=== PATIENT | male | born 1975 | race Two or more races ===

== ENCOUNTER 2018-02-14 02:38 | Emergency (ER) | payer MEDICAID ==
[2018-02-14 02:43] VITALS: BP 145/97
--- NOTE | 2018-02-14 02:45 | EDPHY ---
H & P Stated Complaint: lumbar back pain Time Seen by Provider: 02/14/18 02:45 HPI/ROS: HPI CHIEF COMPLAINT: Low back pain HISTORY OF PRESENT ILLNESS: Patient very pleasant 42-year-old male he is otherwise healthy but does have a history of a low back injury, he presents emergency room with back pain. The pain is located in his lumbar spine. Sharp stabbing radiates slightly out to the right side and goes down his right gluteus but does not go down the entire leg. He states this all started yesterday when he picked up a heavy bucket of water at work. He stood up straight developed some pain. He has injured his back before approximately 2 years ago. No lumbar surgery. He denies any leg weakness or saddle anesthesia denies bowel or bladder incontinence. Denies chest pain or shortness of breath or abdominal pain. The pain is located his lumbar spine. Describes it as 6/10. Past Medical History: Previous lumbar back injury Past Surgical History: Left kidney surgery Social History: Smokes tobacco lives in [place] denies illicit drugs or alcohol. Family History: Noncontributory ROS REVIEW OF SYSTEMS: A comprehensive 10 point review of systems is otherwise negative aside from elements mentioned in the history of present illness. Exam Constitutional appears well nontoxic triage nursing summary reviewed, vital signs reviewed, awake/alert. Eyes normal conjunctivae and sclera, EOMI, PERRLA. HENT normal inspection, atraumatic, moist mucus membranes, no epistaxis, neck supple/ no meningismus, no raccoon eyes. Respiratory clear to auscultation bilaterally, normal breath sounds, no respiratory distress, no wheezing. Cardiovascular rate normal, regular rhythm, no murmur, no edema, distal pulses normal. Gastrointestinal soft, non-tender, no rebound, no guarding, normal bowel sounds, no distension, no pulsatile mass. Genitourinary no CVA tenderness. Musculoskeletal lumbar spine no significant midline tenderness or step-offs, no crepitus, very mild paravertebral pain of the lumbar spine worse on the right than left, normal straight leg raise, normal leg strain, no saddle anesthesia or leg weakness, no midline vertebral tenderness, full range of motion, no calf swelling, no tenderness of extremities, no meningismus, good pulses, neurovascularly intact. Skin pink, warm, & dry, no rash, skin atraumatic. Neurologic awake, alert and oriented x 3, AAOx3, moves all 4 extremities equally, motor intact, sensory intact, CN II-XII intact, normal cerebellar, normal vision, normal speech. Psychiatric normal mood/affect. Heme/Lymph/Immune no lymphadenopathy. Differential Diagnosis: Includes but is not limited to in a particular order lumbar strain, annular tear, disc herniation, nerve root compression, sciatica, compression fracture Medical Decision Making: Plan for this patient he drove here will provide 800 mg Motrin, and lumbar spine x-ray. Re-evaluation: X-ray lumbar spine reviewed. Negative for acute compression fracture malalignment. This is interpreted by myself. Source: Patient - Personal History Current Tetanus Diphtheria and Acellular Pertussis (TDAP): No - Medical/Surgical History Hx Asthma: No Hx Chronic Respiratory Disease: No Hx Diabetes: No Hx Cardiac Disease: No Hx Renal Disease: No Hx Cirrhosis: No Hx Alcoholism: No Hx HIV/AIDS: No Hx Splenectomy or Spleen Trauma: No Other PMH: hx "lumbar pain from a drunk fall a long time ago" - Social History Smoking Status: Heavy smoker Constitutional: Initial Vital Signs Temperature (C) 36.9 C 02/14/18 02:39 Heart Rate 80 02/14/18 02:39 Respiratory Rate 18 02/14/18 02:39 Blood Pressure 145/97 H 02/14/18 02:39 O2 Sat (%) 96 02/14/18 02:39 O2 Delivery Mode Room Air Allergies/Adverse Reactions: No Known Allergies Allergy (Unverified 02/14/18 02:39) Home Medications: Medication Instructions Recorded Dexamethasone [Decadron 4 MG (*)] 8 mg PO DAILY #4 tab 02/14/18 Hydrocodone/APAP 5/325 [[place] 1 - 2 tab PO Q4H PRN #10 tab 02/14/18 5/325] Ibuprofen [Motrin (*)] 800 mg PO Q6-8PRN #14 tab 02/14/18 Medical Decision Making - Data Points Medications Given: Discontinued Medications Dexamethasone (Decadron) 8 mg PO EDNOW ONE Stop: 02/14/18 02:54 Last Admin: 02/14/18 02:56 Dose: 8 mg Ibuprofen (Motrin) 800 mg PO EDNOW ONE Stop: 02/14/18 02:51 Last Admin: 02/14/18 02:56 Dose: 800 mg Departure - Departure Disposition: Home, Routine, Self-Care Clinical Impression: Lumbar spine strain Qualifiers: Encounter type: initial encounter Qualified Code(s): S39.012A - Strain of muscle, fascia and tendon of lower back, initial encounter Condition: Good Instructions: Low Back Strain (ED) Additional Instructions: 1. Follow up with her primary care doctor. 2. Take it easy. Do not lift heavy things. 3. Anti-inflammatory pain medicine for mild pain 4. [place] for severe pain. Referrals: NONE *PRIMARY CARE P,. [Primary Care Provider] - As per Instructions Prescriptions: Dexamethasone [Decadron 4 MG (*)] 8 mg PO DAILY #4 tab Hydrocodone/APAP 5/325 [[place] 5/325] 1 - 2 tab PO Q4H PRN #10 tab PRN Reason: Pain, Moderate Ibuprofen [Motrin (*)] 800 mg PO Q6-8PRN #14 tab
[2018-02-14] MEDS ORDERED: IBUPROFEN 800 MG TAB PO ONE (02:50)
[2018-02-14] MEDS ORDERED: DEXAMETHASONE 4 MG TAB PO ONE (02:53)
== END 2018-02-14 03:16 | disposition home or self-care (01) ==
DX: S39.012A Strain of muscle, fascia and tendon of lower back, initial encounter (principal); F17.200 Nicotine dependence, unspecified, uncomplicated; X50.9XXA Other and unspecified overexertion or strenuous movements or postures, initial encounter; Y99.8 Other external cause status; Y93.89 Activity, other specified